=== PATIENT | female | born 1970 | race Caucasian/White ===

== ENCOUNTER 2021-02-16 14:41 | Emergency (ER) | payer OTHER ==
[~2021-02-16] VITALS: Ht 157.5 cm; Wt 81.7 kg
[2021-02-16 14:50] VITALS: BP 128/97
[2021-02-16 15:08] LABS: NUCLEATED RBCS 0 /100WBC
[2021-02-16 16:11] LABS: HEMATOCRIT ND % (37.0-47.0); HEMOGLOBIN ND gm/dL (12.0-15.0); RBC ND mil/uL (4.20-5.00); WBC ND thou/uL (4.0-11.0)
[2021-02-16 16:12] LABS: BANDS ND %; MCH ND pg (26.0-34.0); MCHC ND g/dL (28.0-37.0); MCV ND fL (80.0-100.0); PLATELET COUNT* ND thou/uL (150-400); PLATELET ESTIMATE ND; POLYS ND %; RDW-CV ND % (10.5-14.5)
[2021-02-16 16:13] LABS: ABSOLUTE LYMPHOCYTES ND thou/uL (0.8-5.3); ABSOLUTE MONOCYTES ND thou/uL (0.0-1.2); ABSOLUTE NEUTROPHILS ND thou/uL (1.6-8.1); BASOPHILS ND %; EOSINOPHILS ND %; LYMPHOCYTES ND %; MONOCYTES ND %
[2021-02-16 16:14] LABS: ABSOLUTE BASOPHILS ND thou/uL (0.0-0.2)
[2021-02-16 16:15] LABS: POTASSIUM ND mmol/L (3.5-5.1); SODIUM ND mmol/L (136-145)
[2021-02-16 16:16] LABS: ANION GAP ND mmol/L (7-16); BUN ND mg/dL (7-18); CHLORIDE ND mmol/L (98-107); CO2 ND mmol/L (21-32); CREATININE ND mg/dL (0.6-1.3)
[2021-02-16] MEDS ORDERED: CEPHALEXIN500 MG PO (16:16)
[2021-02-16] MEDS ORDERED: DOXYCYCLINE 10100 M2 PO (16:16)
[2021-02-16 16:17] LABS: ALKALINE PHOSPHATASE ND U/L (46-116); CALCIUM ND mg/dL (8.5-10.1); GLUCOSE ND mg/dL (70-99); SGOT ND U/L (15-37); SGPT ND U/L (30-65); TOTAL BILIRUBIN ND mg/dL (<0.1-1.0)
[2021-02-16 16:18] LABS: ALBUMIN ND g/dL (3.4-5.0); TOTAL PROTEIN ND g/dL (6.4-8.2)
[2021-02-16 16:19] LABS: ABSOLUTE EOSINOPHILS ND thou/uL (0.0-0.7); MPV ND fl. (7.2-11.1)
--- NOTE | 2021-02-16 16:24 | NUR ---
WOUND NURSE: PATIENT SEEN TO ADDRESS TRAUMATIC LESIONS ON THE LEFT LOWER EXTREMITY. ANTERIOR TIBIAL WOUND MEASURES 6.0 X 0.5 X 0.1CM. CONTAINS A THIN DRY SCAB OVER OVER THE WOUND BED. SLIGHT PERIWOUND REDNESS AND WITH ECCHYMOSIS. NO ACTIVE DRAINAGE. PROXIMAL POSTERIOR CALF WOUND MEASURES 2.5 X 2.0 X 0.1 CM. LIFTED SCAB AWAY AND EXPOSED RED, MOIST NONGRANULATING TISSUE. POSTERIOR DISTAL WOUND ALSO MEASURES 2.5 X 2.0 X 0.1 CM. THERE IS SCANT SEROUSANGUINOUS DRAINAGE. MINIMAL PERIWOUND REDNESS, BUT WITH ECCHYMOSIS PRESENT. PEDAL PULSES ARE 1+ ON THE LEFT AND 2+ ON THE RIGHT. CAPILLARY REFILL IS <3 SECONDS. TOES ARE WARM AND PINK. CLEANSED WITH SOAP AND WATER, RINSED, THEN PATTED DRY. APPLIED LOTION TO INTACT SKIN TOES TO KNEE. APPLIED XEROFORM GAUZE UNDER ABD TO WOUNDS, WRAPPED WITH KERLEX ROLL GAUZE UNDER MEI WRAP TOES TO KNEE. PATIENT LIVING IN [place] AND HAS HER SMALL DOG IN THERE. PATIENT STATED SHE DOES NOT WANT TO STAY IN THE HOSPITAL THERE IS NO ONE TO CARE FOR HER DOG. PATIENT'S SPOUSE IS ALSO HERE AND NO PLANS FOR HIM TO DISCHARGE. PATIENT WAS INSTRUCTED ON DRESSING CHANGE PROCEDURES AND REPORTABLE SIGNS AND SYMPTOMS IF THEY SHOULD DEVELOP. PATIENT STATES SHE UNDERSTANDS.
[2021-02-16 16:40] VITALS: BP 128/92
== END 2021-02-16 19:24 | disposition home or self-care (01) ==
LOC: M.ERS 14:41 → M.TBA-ER 15:21 → M.ERS 15:21
PROVIDERS: Physician Assistant
DX: L03.116 Cellulitis of left lower limb (principal); Z20.822 Contact with and (suspected) exposure to COVID-19; F17.210 Nicotine dependence, cigarettes, uncomplicated; Z88.2 Allergy status to sulfonamides